=== PATIENT | male | born 1980 | race African-American/Black ===

== ENCOUNTER 2024-11-11 11:21 | Emergency (ER) | payer OTHER ==
[~2024-11-11] VITALS: Ht 185.4 cm; Wt 86.4 kg
[2024-11-11 11:29] VITALS: TEMP 98.5
[2024-11-11 12:45] VITALS: BP 136/75; PULSE 85; RESP 17; O2SAT 97
== END 2024-11-11 13:00 | disposition home or self-care (01) ==
LOC: EMS 11:21
DX: S62.616A Displaced fracture of proximal phalanx of right little finger, initial encounter for closed fracture (principal); X58.XXXA Exposure to other specified factors, initial encounter; Y93.89 Activity, other specified; Y92.89 Other specified places as the place of occurrence of the external cause; Y99.8 Other external cause status
CPT/HCPCS: 99283